=== PATIENT | female | born 1970 | race Hispanic/Latino ===

== ENCOUNTER 2019-10-08 19:07 | Emergency (ER) | payer OTHER, SELFPAY ==
[2019-10-08 19:15] VITALS: BP 170/73; PULSE 66; RESP 19; TEMP 36.6; O2SAT 100; BMI 29.8
--- NOTE | 2019-10-08 19:23 | DI.RAD.S_ITS ---
PROCEDURE: XR FOOT RT MIN 3V INDICATIONS: R lateral ankle, mid foot, lower fibula pain, s/p inverted TECHNIQUE: 3 views of the foot were acquired. COMPARISON: None. FINDINGS: Bones: No fractures or dislocations. No suspicious bony lesions. Mild first MTP joint degeneration. Soft tissues: No tibiotalar joint effusion. Achilles tendon appears normal. IMPRESSION: No fracture. If the patient's symptoms do not improve recommend followup radiographs in 10 days to assess for healing sclerosis/occult injury. Dictated by: Luis Dickens M.D. on 10/08/2019 at 20:10 Approved by: Luis Dickens M.D. on 10/08/2019 at 20:11
--- NOTE | 2019-10-08 19:23 | DI.RAD.S_ITS ---
PROCEDURE: XR ANKLE RT MIN 3V INDICATIONS: R lateral ankle, mid foot, lower fibula pain, s/p inverted TECHNIQUE: 3 views of the ankle were acquired. COMPARISON: None. FINDINGS: Bones: No fractures or dislocations. Ankle mortise is normally aligned. No suspicious bony lesions. Soft tissues: Lateral soft tissue swelling IMPRESSION: Lateral soft tissue swelling. No fracture. If the patient's symptoms do not improve recommend followup radiographs in 10 days to assess for healing sclerosis/occult injury. Dictated by: Luis Dickens M.D. on 10/08/2019 at 20:11 Approved by: Luis Dickens M.D. on 10/08/2019 at 20:13
--- NOTE | 2019-10-08 19:38 | ED_ITS ---
HPI - Extremity Injury (Lower) <WENDY Phillips - Last Filed: 10/08/19 21:03> General Chief Complaint: Extremity Injury, Lower Stated Complaint: twisted right ankle Time Seen by Provider: 10/08/19 19:10 Source: patient Mode of arrival: Ambulatory Limitations: no limitations History of Present Illness HPI Narrative: This is a 49-year-old female, nonsmoker, who presents to ED with family with chief complain of right lateral ankle and midfoot pain. Patient reports had inverted affected foot 8 days ago in [place]. She explains that the side walk in [place] is pretty high and she fell off the side walk. Patient had significant swelling for couple of days after the injury. And she had returned to home 2 days after but did not come in to ED until tonight. She has been using ibuprofen every 6-8 hours for discomfort and has been using Terrance wrap and ankle sleeve immobilizer. She noticed using ankle sleeve today was difficult due to increasing swelling and discomfort. Patient has been limping to minimize weight-bearing on injured ankle. Patient reports intact sensation but discomfort with dorsal flexion, plantar flexion and movement of affected ankle. Patient denies other injuries. Related Data Home Medications Medication Instructions Recorded Confirmed amitriptyline 50 mg tablet 50 mg PO DAILY 07/01/18 05/05/19 fluticasone propionate 50 2 spray NASAL DAILY 07/01/18 05/05/19 mcg/actuation nasal spray,suspension ibuprofen 800 mg tablet 800 mg PO BID 07/01/18 05/05/19 atenolol PO 05/05/19 05/05/19 omeprazole PO 05/05/19 05/05/19 sucralfate PO 05/05/19 05/05/19 Previous Rx's Medication Instructions Recorded benzonatate 100 mg capsule 100 mg PO TID PRN #10 cap 05/05/19 Allergies Allergy/AdvReac Type Severity Reaction Status Date / Time No Known Drug Allergies Allergy Verified 08/27/18 09:52 Review of Systems <WENDY Phillips - Last Filed: 10/08/19 21:03> Review of Systems Narrative: General: Denies fever, chills, fatigue, malaise, sweats. HEENT: Denies sinus pain, ear pain, sore throat, difficulty swallowing, dizziness. Respiratory: Denies dyspnea, cough, wheezing, hemoptysis, sputum. Cardiovascular: Denies chest pain, palpitations, orthopnea, edema. Gastrointestinal: Denies nausea, vomiting, abdominal pain, diarrhea, constipation, melena. : Denies dysuria, frequency, incontinence, hematuria, urinary retention. Musculoskeletal: See HPI Skin: Denies rash, skin lesions, or other. Neurologic: Denies weakness, headache, numbness, change in speech, confusion, seizures, incoordination. Psychiatric: No concerning psychosocial issues. 12-point review of systems is negative except for those stated above. Patient History <WENDY Phillips - Last Filed: 10/08/19 21:03> Medical History Acid reflux (Acute) High blood pressure (Acute) Surgical History History of cholecystectomy (Acute) Social History Smoking Status: Never smoker alcohol intake: never Smoking Status: Never smoker alcohol intake frequency: holidays/special occasions only Substance Use Type: former substance user Exam <WENDY Phillips - Last Filed: 10/08/19 21:03> Narrative Exam Narrative: General appearance: well developed, well nourished, in no acute distress. Head: normocephalic, atraumatic, no scalp lesions, non-tender. ENT: Bilateral auditory canals and tympanic membranes clear. Hearing grossly intact. Nose without bleeding, purulent discharge, septal hematoma or deviation. Turbinate without erythema or swelling. Facial sinuses nontender to palpate. Mucous membrane moist, no mucosal lesion. Throat without erythema, tonsillar hypertrophy or exudate. Uvula in midline, airway patent. Neck/Thyroid: neck supple, full range of motion, no visible masses or meningeal signs. No JVD, non-tender without lymphadenopathy. Skin: no suspicious rashes, lesions over visible areas. Warm and dry and appropriate color for ethnicity. Heart: no clubbing, no cyanosis, no edema. Lungs: Breathing even and unlabored. No stridor. No accessory muscles used. Able to speak in full sentences. Chest: normal shape and expansion. Abdomen: non-obese, non-distended. Neurologic: alert and oriented. 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 Psych: good eye contact, normal affect. Initial Vital Signs Initial Vital Signs: Vital Signs Temperature 97.9 F 10/08/19 19:15 Pulse Rate 66 10/08/19 19:15 Respiratory Rate 19 10/08/19 19:15 Blood Pressure 170/73 H 10/08/19 19:15 Pulse Oximetry 100 10/08/19 19:15 Extrem Right lower extremity: knee Details: normal to inspection; no tenderness, ankle Details: abnormal to inspection, tenderness Location: of the lateral malleolus and anteromedially, swelling Details: laterally, edema, abnormal ROM Details: pain with active ROM, pain with passive ROM and with range as follows (limited strength plantar and dorsal flexion) and ecchymosis (lateral malleolar); no crepitus and foot Details: normal capillary refill, tenderness Location: of the dorsal foot and of the medial foot, toes with normal ROM, vascular exam Details: dorsalis pedis pulse present and motor-sensory exam Details: light-touch abnormal <Lorna Bourne MD - Last Filed: 10/09/19 05:23> Initial Vital Signs Initial Vital Signs: Vital Signs Temperature 97.9 F 10/08/19 19:15 Pulse Rate 66 10/08/19 19:15 Respiratory Rate 19 10/08/19 19:15 Blood Pressure 170/73 H 10/08/19 19:15 Pulse Oximetry 100 10/08/19 19:15 Scores <WENDY Phillips - Last Filed: 10/08/19 21:03> GCS Rosette coma scale eye opening: Spontaneous Rosette coma scale verbal response: Orientated Rosette coma scale motor response: Obey commands [place] coma scale total score: 15 Course <WENDY Phillips - Last Filed: 10/08/19 21:03> Orders Ordered: ED Orders 10/08/19 19:23 XR ankle RT min 3V Stat XR foot RT min 3V Stat Vital Signs Vital signs: Vital Signs - 8 hr 10/08/19 19:15 Temperature 97.9 F Pulse Rate 66 Respiratory Rate 19 Blood Pressure 170/73 H Pulse Oximetry 100 <Lorna Bourne MD - Last Filed: 10/09/19 05:23> Orders Ordered: ED Orders 10/08/19 19:23 XR ankle RT min 3V Stat XR foot RT min 3V Stat Vital Signs Vital signs: Vital Signs - 8 hr 10/08/19 19:15 Temperature 97.9 F Pulse Rate 66 Respiratory Rate 19 Blood Pressure 170/73 H Pulse Oximetry 100 MDM - Extremity Injury (Lower) <WENDY Phillips - Last Filed: 10/08/19 21:03> Differential Diagnosis Differential diagnosis: Likely ankle sprain and strain, ankle fracture and other (foot sprain, foot fracture, fibula fracture) Medical Records Attestation: I reviewed the patient's medical records. Imaging Data XR-Foot RT: Radiologist's Impression: [address] [address] XRay Report Signed Patient: Anastasiia Sanchez#: [id number] : 1970Acct:[id number] Age/Sex: 49 / FDate of Service: 10/08/19 Loc: ED Accession Number: [id number] Procedure: XR foot RT min 3V Ordering Provider: Jalen Ochoa PROCEDURE: XR FOOT RT MIN 3V INDICATIONS: R lateral ankle, mid foot, lower fibula pain, s/p inverted TECHNIQUE: 3 views of the foot were acquired. COMPARISON: None. FINDINGS: Bones: No fractures or dislocations. No suspicious bony lesions. Mild first MTP joint degeneration. Soft tissues: No tibiotalar joint effusion. Achilles tendon appears normal. IMPRESSION: No fracture. If the patient's symptoms do not improve recommend followup radiographs in 10 days to assess for healing sclerosis/occult injury. Dictated by: Luis Dickens M.D. on 10/08/2019 at 20:10 Approved by: Luis Dickens M.D. on 10/08/2019 at 20:11 XR-Ankle RT: Radiologist's Impression: [address] [address] XRay Report Signed Patient: Anastasiia Sanchez#: [id number] : 1970Acct:[id number] Age/Sex: 49 / FDate of Service: 10/08/19 Loc: ED Accession Number: [id number] Procedure: XR ankle RT min 3V Ordering Provider: Jalen Ochoa PROCEDURE: XR ANKLE RT MIN 3V INDICATIONS: R lateral ankle, mid foot, lower fibula pain, s/p inverted TECHNIQUE: 3 views of the ankle were acquired. COMPARISON: None. FINDINGS: Bones: No fractures or dislocations. Ankle mortise is normally aligned. No suspicious bony lesions. Soft tissues: Lateral soft tissue swelling IMPRESSION: Lateral soft tissue swelling. No fracture. If the patient's symptoms do not improve recommend followup radiographs in 10 days to assess for healing sclerosis/occult injury. Dictated by: Luis Dickens M.D. on 10/08/2019 at 20:11 Approved by: Luis Dickens M.D. on 10/08/2019 at 20:13 [facility] [place] Narrative Medical decision making narrative: This is 49-year-old female who presents to ED with right lateral foot and ankle discomfort and swelling after she inverted about 8 days ago in [place]. No fracture or dislocation appreciated on right foot and x-ray. Patient has intact sensation and able to move her toes. There is ecchymosis and edema to right lateral malleolar and foot region. Patient's affected foot placed on walking boot splint for comfort. Patient declined crutches at this time. Advised to take Tylenol and or Motrin as needed for discomfort and elevated affected foot if there is swelling. Advised to follow up with PCP if pain persist longer than 2-4 weeks for additional evaluation and further imaging test. Patient advised to stretch it right ankle this note has acute pain subsides. Patient verbalized understanding and agrees with the treatment plan. Discharge Plan Departure Patient Disposition: Home Clinical Impression: Ankle sprain and strain Discharge Date/Time: 10/08/19 21:06 Instructions: DI for Ankle Sprain Activity Restrictions/Additional Instructions: You have been diagnosed with [right ankle and foot sprain/strain. X-ray test on your right ankle and foot does not show fracture or dislocations today. You were provided with walking boot for comfort. As soon as acute pain has improved, please start stretching your ankle. If there is swelling, you can elevate affected limb above your chest level during rest.]. What to do: *Take your medications as directed. You can take Tylenol 650-1000 mg 4 times a day as needed for discomfort. Ibuprofen/Motrin 400 mg to 600 mg 3 times a day with food for inflammation and pain. Use walking boots if you have ankle discomfort with ambulation, *Follow up with your primary care provider in 2-3 days, call for an appointment. Let them know you were seen in the ED and that we asked you to be seen in follow up. If your pain persists greater than 2-4 weeks, please have your foot and ankle re-evaluated and another imaging test. *Return to ED if you have any new, worsening, or concerning symptoms, such as [chest pain, breathing difficulty, unable to tolerate fluids, severe pain, tingling, weakness, numbness to affected foot or any acute concerns]. Prescriptions: No Action ibuprofen 800 mg tablet 800 mg PO BID RF: 0 amitriptyline 50 mg tablet 50 mg PO DAILY RF: 0 fluticasone propionate [Flonase Allergy Relief] 50 mcg/actuation spray,suspension 2 spray NASAL DAILY RF: 0 atenolol PO RF: 0 omeprazole PO RF: 0 sucralfate PO RF: 0 benzonatate [Tessalon Perles] 100 mg capsule 100 mg PO TID PRN (Reason: cough) Qty: 10 RF: 0
== END 2019-10-08 21:06 | disposition home or self-care (01) ==
PROVIDERS: Emergency Provider Nurse Practitioner Family
DX: S93.401A Sprain of unspecified ligament of right ankle, initial encounter (principal); S96.911A Strain of unspecified muscle and tendon at ankle and foot level, right foot, initial encounter; W19.XXXA Unspecified fall, initial encounter
CPT/HCPCS: 73610; 73630; 99283

== ENCOUNTER → 2021-01-17 08:57 | Outpatient (CLI) | payer OTHER, SELFPAY ==
[2021-01-17 09:45] LABS: COVID19 -Nasal RAPID Negative (Negative)
== END ==
PROVIDERS: PCP Physician Assistant; Visit Provider Specialist
DX: Z20.822 Contact with and (suspected) exposure to COVID-19 (principal)
CPT/HCPCS: 87635; C9803

== ENCOUNTER 2021-01-18 07:50 | Day surgery (SDC) | payer OTHER, SELFPAY ==
[2021-01-18] VITALS (9 sets, daily range): BP systolic 117–138; BP diastolic 62–91; PULSE 87–105; RESP 12–16; TEMP 36.1–36.7; O2SAT 91–99; BMI 35.4
--- NOTE | 2021-01-18 | PATH_ITS ---
[facility] Accession Number: [id number] . 01 Material submitted: . PART A: appendix - APPENDICEAL OPENING PART B: colon - COLON POLYP @60CM . 02 Diagnosis: A. Appendiceal Opening: Superficial portions of colorectal mucosa with patchy hyperplastic mucosal change and patchy mucosal erosion. Negative for dysplasia or malignancy. Negative for active inflamation, granulomas, and features of microscopic colitis. . B. Colon Polyp at 60 cm: Superficial portions of colorectal mucosa x2 with prominent lymphoid aggregates. [facility] 01/23/2021 1030 Local . 02 Comment: As part of routine quality assurance coach, parts of this case were also reviewed by Dr. Stroud, who agrees with the interpretation. . 02 Electronically signed: . Carmenza Alvarez MD, Pathologist NPI- [id number] . 01 Gross description: . A. The specimen is received in formalin, labeled appendiceal opening, and consists of two joya fragments of soft tissue measuring 0.4 x 0.3 x 0.2 cm in aggregate. The specimen is entirely submitted in cassette A1. B. The specimen is received in formalin, labeled colon polyp at 60 cm, and consists of two joya fragments of soft tissue measuring 0.5 x 0.4 x 0.2 cm in aggregate. The specimen is entirely submitted in cassette B1. ([id number]) /[facility] 01/19/2021 1703 Local . 02 Pathologist provided ICD-10: R85.5 . 02 CPT . 871362, 327076 Performed at: 01 [facility] [address], [place], [place] [id number] MD Saud Dutton MD Phone: [phone] Performed at: 02 [facility] [address] [place] [id number] MD Ritika Stroud MD Phone: [phone]
[2021-01-18] MEDS: FLEETS ENEMA 1 EACH PR (09:05)
[2021-01-18] MEDS: LACTATED RINGERS 1,000 ML 200 ML IV (09:06)
--- NOTE | 2021-01-18 09:17 | PM.HP.1 ---
History of Present Illness History of Present Illness Date Patient Seen: 01/18/21 Time Patient Seen: 09:17 Chief complaint: DX COLONOSCOPY/EGD Narrative: The patient is a woman here for a screening colonoscopy. She had a positive Cologuard test. She is also here for an EGD due to chronic reflux issues. Patient History Medical History Acid reflux High blood pressure Surgical History History of cholecystectomy Hx of tubal ligation Family & Social History Family History Father Hypertension Grandmother Diabetes mellitus Social History: household members spouse Tobacco & Substance use: Smoking Status Never smoker alcohol intake never alcohol intake frequency holiday/special occasion Substance Use Type does not use Meds Home Medications and Allergies Home Medications Medication Instructions Recorded Confirmed Type amitriptyline 50 mg tablet 50 mg PO DAILY 07/01/18 01/18/21 History cholecalciferol (vitamin D3) 25 25 mcg PO DAILY 11/16/20 01/18/21 History mcg (1,000 unit) capsule magnesium 200 mg tablet 200 mg PO DAILY 11/16/20 01/18/21 History atenolol 50 mg PO DAILY 01/18/21 01/18/21 History omeprazole 20 mg PO DAILY 01/18/21 01/18/21 History Allergies Allergy/AdvReac Type Severity Reaction Status Date / Time No Known Drug Allergies Allergy Verified 11/16/20 13:17 Review of Systems Review of Systems ROS: Yes All systems reviewed with the patient and are negative except as otherwise documented Exam Vital Signs (past 8 hours): - 01/18/21 08:44 Temperature 98.0 F Pulse Rate 105 H Respiratory Rate 13 Blood Pressure 138/91 H Pulse Oximetry 99 Oxygen Delivery Method Room Air Narrative Exam Narrative: Pleasant cooperative patient no apparent distress. Lungs are clear to auscultation. No rales or rhonchi. Heart regular rate and rhythm no murmur gallop. Abdomen is soft nontender without mass. No obvious hernias. Patient is alert and oriented x3. Assessment & Plan Assessment & Plan narrative: The patient for a screening colonoscopy and an EGD. I have discussed the procedures with her. Risks of bleeding, perforation which would necessitate major operation, failure to find remove all lesions, the potential tattoo were all discussed. All questions were answered. They wished to proceed.
--- NOTE | 2021-01-18 09:20 | PM.PREOP ---
Pre-operative Note COVID-19 COVID-19 status: Negative Result date/Date tested (Pos, Neg/Pending): 01/17/21 Interval Note History & Physical reviewed/Exam performed by Physician: Yes Changes to H&P: No ASA Class (for procedural sedation): II
--- NOTE | 2021-01-18 09:23 | PM.OP.ENDO ---
Operative Date/Time/Diagnoses Date of procedure: 01/18/21 Time of procedure: 10:12 Pre-op diagnosis: Chronic reflux disease. Positive Cologuard test. Screening examination. Post-op diagnosis: same (Normal upper scope. Two tiny lesions in the colon.) Procedure & Clinicians Study performed: EGD. Colonoscopy with cold biopsy. Same procedure as scheduled: Yes Indications: Positive Cologuard test. This is her 1st colonoscopy. Chronic history of reflux disease. Surgeon: Luisito Enamorado Procedure Notes SCOAP/Timeout: Performed Procedure in detail: The patient was placed in left lateral decubitus position underwent IV sedation after gargling with topical anesthetic. Sedation was directed by the surgeon consisting of fentanyl and Versed. Patient was also given metoprolol as her heart rate was in the 120s and she had not taken her beta nerissa. Scope was advanced under direct vision into the esophagus. The esophagus was unremarkable. GE junction at 35 cm from the incisors. No evidence of Graham's esophagus. Stomach insufflated well. There were no lesions seen in the body incisura antrum. The pyloric channel was widely patent. The duodenum was normal the 4th part. Scope was brought back into the stomach and retroflexed. The proximal stomach was normal in appearance. There was no evidence of a hiatal hernia. The scope was slowly withdrawn and no lesions were seen. The patient was repositioned. The patient was given additional IV sedation directed by the surgeon consisting of fentanyl and Versed. Digital exam was unremarkable except for a visible external hemorrhoid.. The scope was inserted and advanced through the rectum into the sigmoid, descending, transverse, and ascending colon. Pressure was applied the patient was repositioned in a stiffener inserted in order to reach the cecum.. The cecum was reached identified by the ileocecal valve and the appendiceal opening. The ileocecal valve was briefly cannulated. The terminal ileum was normal in appearance. There was a tiny lesion near the edge of the lip of the appendix which was biopsied and removed. The scope was gradually brought out. One either tiny Polyp was found at 60 cm from the anal verge and was biopsied and removed. The scope ultimately was retroflexed in the rectum. The appearance was normal. The scope was removed and the patient tolerated the procedure well. Prep was good. Scope withdrawal time: 9 minutes(10 total) Sedation minutes: 32 Findings: polyp (Two tiny lesions) Specimen(s): other (Polyps) Complications: none Post-procedure Recommendations: Colonscopy in 5 years (Unless the biopsies proved to be non neoplastic in which case 10 years would be more appropriate.) Follow up: as needed Disposition: PACU
[2021-01-18] MEDS: LIDOCAINE 4% SOLN 50 ML 20 ML TOP (09:26)
[2021-01-18] MEDS: MIDAZOLAM 5 MG/5 ML VIAL IV (09:28)
[2021-01-18] MEDS: METOPROLOL TARTRATE 5 MG/5 ML INJ IV (09:28)
[2021-01-18] MEDS: fentaNYL 250 MCG/5 ML INJ IV (09:29)
== END 2021-01-18 11:03 | disposition home or self-care (01) ==
PROVIDERS: PCP Physician Assistant; Referring Provider Physician Assistant; Visit Provider Specialist
PROC: 0DJ08ZZ Inspection of Upper Intestinal Tract, Via Natural or Artificial Opening Endoscopic (ICD-10-PCS; CPT 43235; principal; 2021-01-18 09:15)
PROC: 0DJD8ZZ Inspection of Lower Intestinal Tract, Via Natural or Artificial Opening Endoscopic (ICD-10-PCS; CPT 45378; 2021-01-18 09:15)
DX: R85.5 Abnormal microbiological findings in specimens from digestive organs and abdominal cavity (principal); K21.9 Gastro-esophageal reflux disease without esophagitis; I10 Essential (primary) hypertension
CPT/HCPCS: 45380; 43235; 99152; 99153; J2250; J3010

== ENCOUNTER 2023-12-02 18:23 | Emergency (ER) | payer OTHER, SELFPAY ==
[2023-12-02 18:29] VITALS: BP 138/83; PULSE 77; RESP 18; TEMP 36.2; O2SAT 99; BMI 34.4
--- NOTE | 2023-12-02 18:36 | DI.RAD.S_ITS ---
PROCEDURE: XR CHEST 1V INDICATIONS: chest pain TECHNIQUE: One view of the chest was acquired. COMPARISON: None. FINDINGS: Surgical changes and devices: None. Lungs and pleura: Lungs are clear. No pleural effusions or pneumothorax. Mediastinum: Mediastinal contours appear normal. Heart size is normal. Bones and chest wall: No suspicious bony lesions. Overlying soft tissues appear unremarkable. IMPRESSION: No acute cardiopulmonary pathology. Dictated by: Lee Wheatley M.D. on 12/02/2023 at 19:06 Approved by: Lee Wheatley M.D. on 12/02/2023 at 19:06
[2023-12-02 19:03] VITALS: BP 140/83; PULSE 84; RESP 14; O2SAT 97
[2023-12-02 19:30] VITALS: BP 133/72; PULSE 80; RESP 17; O2SAT 96
[2023-12-02 19:30] LABS: Add Manual Diff / Slide Review NO; Basophils Absolute Auto 100 /uL (0-100); Basophils Percent Auto 0.7 % (0-2); Eosinophils Absolute Auto 200 /uL (0-450); Eosinophils Percent Auto 2.5 % (2-4); Hematocrit 43.5 % (36-46); Hemoglobin 14.7 g/dL (12.0-16.0); Lymphocytes Absolute Auto 3200 /uL (1100-4500); Lymphocytes Percent Auto 37.4 % (25-40); Mean Corpuscular HGB Conc 33.7 % (30-36); Mean Corpuscular Hemoglobin 29.6 PG (26-34); Mean Corpuscular Volume 87.7 fL (80-100); Monocytes Absolute Auto 700 /uL (0-900); Monocytes Percent Auto 7.7 % (3-14); Neutrophils Absolute Auto 4400 /uL (1500-7000); Neutrophils Percent Auto 51.7 % (50-75); Platelet Count 202 X10^3/uL (150-400); Red Blood Cell Count 4.96 X10^6/uL (4.0-5.2); Red Cell Distribution Width 13.8 % (11.6-14.8); White Blood Cell Count 8.6 X10^3/uL (4.5-11.0)
[2023-12-02 20:00] VITALS: BP 131/72; PULSE 76; RESP 17; O2SAT 95
[2023-12-02 20:01] LABS: Alanine Aminotransferase 93 IU/L (<35); Albumin 4.1 g/dL (3.5-5.0); Albumin Globulin Ratio 1.2 (1.0-2.8); Alkaline Phosphatase 119 U/L (38-126); Aspartate Aminotransferase 75 IU/L (14-36); BUN Creatinine Ratio 17.9 (6-22); Bilirubin Total 0.4 mg/dL (0.2-1.3); Blood Urea Nitrogen 15 mg/dL (7-17); Calcium 9.2 mg/dL (8.4-10.2); Carbon Dioxide 30 mmol/L (22-32); Chloride 102 mmol/L (98-107); Creatine Kinase 94 U/L (30-135); Estimated Glomerular Filt Rate > 60 mL/min (>60); Globulin 3.3 g/dL (1.7-4.1); Glucose 182 mg/dL (70-100); HEMOLYSIS 20 (0-50); Lipase 95 U/L (23-300); Magnesium 1.9 mg/dL (1.6-2.3); Potassium 3.7 mmol/L (3.4-5.1); Sodium 137 mmol/L (137-145); Total Protein 7.4 g/dL (6.3-8.2)
[2023-12-02 20:12] LABS: Troponin I < 0.012 ng/mL (0.01-0.034)
--- NOTE | 2023-12-02 20:28 | ED.GENADULT ---
HPI - General Adult General Chief complaint: Dizziness Stated complaint: dizziness, tingling hands, vomiting Time Seen by Provider: 12/02/23 18:36 Source: patient Mode of arrival: Ambulatory History of Present Illness HPI narrative: Patient is a 53-year-old female. She states that today she was sitting and she had a very sudden onset of feeling like the room was spinning. It lasted only a few minutes and then completely resolved. During the time she became very nauseous and vomiting. She would tingling in her hands. She did not have any chest pain, palpitations, potentially did have a slight headache during the time but that has resolved. No balance issues. No ringing in her ears. She stated that she had something very similar happened a couple weeks ago. She felt like this 1 was more intense and lasted little bit longer than prior. At the time of my evaluation she was asymptomatic. Related Data Home Medications Medication Instructions Recorded Confirmed amitriptyline 50 mg tablet 50 mg PO DAILY 07/01/18 04/19/21 cholecalciferol (vitamin D3) 25 25 mcg PO DAILY 11/16/20 04/19/21 mcg (1,000 unit) capsule magnesium 200 mg tablet 200 mg PO DAILY 11/16/20 04/19/21 atenolol 50 mg tablet 50 mg PO DAILY 01/18/21 04/19/21 omeprazole 20 mg tablet,delayed 20 mg PO DAILY 01/18/21 04/19/21 release Previous Rx's Medication Instructions Recorded triamcinolone acetonide 0.1 % 1 applic topical BID rash/itching 04/19/21 topical ointment #30 grams meclizine 25 mg tablet 25 mg PO BID PRN dizziness #20 tabs 12/02/23 Allergies Allergy/AdvReac Type Severity Reaction Status Date / Time No Known Drug Allergies Allergy Verified 04/19/21 12:50 Review of Systems Review of Systems Narrative: See HPI Patient History Medical History Acid reflux High blood pressure Surgical History History of cholecystectomy Hx of tubal ligation Family History Father Hypertension Grandmother Diabetes mellitus Social History marital status: household members: spouse occupational status: employed Smoking Status: Never smoker alcohol intake: never substance use type: does not use Smoking Status: Never smoker alcohol intake frequency: holidays/special occasions only Substance Use Type: marijuana Exam Initial Vital Signs Initial Vital Signs: Vital Signs Temperature 97.2 F L 12/02/23 18:29 Pulse Rate 77 12/02/23 18:29 Respiratory Rate 18 12/02/23 18:29 Blood Pressure 138/83 12/02/23 18:29 Pulse Oximetry 99 12/02/23 18:29 Oxygen Delivery Method Room Air 12/02/23 18:29 Const General: cooperative, comfortable and No ill appearing HENMT Head: normal to inspection and normocephalic Resp Effort & Inspection: normal respiratory effort Auscultation: clear to auscultation bilaterally Cardio Rate: regular rate Rhythm: regular rhythm GI Inspection: normal to inspection Skin General: no rashes or lesions noted Neuro General: patient alert, patient awake, patient oriented x3 and moves all extremities Speech: speech normal Gait: normal gait Extrem General: normal to inspection and capillary refill normal Course Orders Ordered: ED Orders 12/02/23 18:36 XR chest 1V Stat EKG-12 Lead Stat 12/02/23 19:18 Complete Blood Count AUTO DIFF Stat Comprehensive Metabolic Panel Stat Lipase Stat Magnesium Stat Troponin & CK Cardiac Panel Stat Discontinued Medications Aspirin (Aspirin 81 Mg Chew Tab) 324 mg PO NOW ONE Stop: 12/02/23 18:36 Last Admin: 12/02/23 18:49 Dose: Not Given Documented By: ARAMIS Vital Signs Vital signs: Vital Signs - 8 hr 12/02/23 18:29 12/02/23 19:03 12/02/23 19:03 Temperature 97.2 F L Pulse Rate 77 84 Respiratory Rate 18 14 Blood Pressure 138/83 140/83 Pulse Oximetry 99 97 Oxygen Delivery Method Room Air Room Air 12/02/23 19:30 12/02/23 19:30 12/02/23 20:00 Temperature Pulse Rate 80 76 Respiratory Rate 17 17 Blood Pressure 133/72 Pulse Oximetry 96 95 Oxygen Delivery Method Room Air 12/02/23 20:00 12/02/23 20:30 12/02/23 20:30 Temperature Pulse Rate 77 Respiratory Rate 14 Blood Pressure 131/72 133/61 Pulse Oximetry 97 Oxygen Delivery Method Medical Decision Making Lab Data Lab results reviewed: Yes I reviewed the patient's lab results. 12/02/23 19:18 12/02/23 19:18 Labs: Lab Results 12/02/23 Range/Units 19:18 WBC 8.6 (4.5-11.0) X10^3/uL RBC 4.96 (4.0-5.2) X10^6/uL Hgb 14.7 (12.0-16.0) g/dL Hct 43.5 (36-46) % MCV 87.7 (80-100) fL MCH 29.6 (26-34) PG MCHC 33.7 (30-36) % RDW 13.8 (11.6-14.8) % Plt Count 202 (150-400) X10^3/uL Neut % (Auto) 51.7 (50-75) % Lymph % (Auto) 37.4 (25-40) % Appling % (Auto) 7.7 (3-14) % Eos % (Auto) 2.5 (2-4) % Baso % (Auto) 0.7 (0-2) % Neut # (Auto) 4400 (5596-1325) /uL Lymph # (Auto) 3200 (0771-3591) /uL Appling # (Auto) 700 (0-900) /uL Eos # (Auto) 200 (0-450) /uL Baso # (Auto) 100 (0-100) /uL PT Cancelled INR Cancelled APTT Cancelled Sodium 137 (137-145) mmol/L Potassium 3.7 (3.4-5.1) mmol/L Chloride 102 (98-107) mmol/L Carbon Dioxide 30 (22-32) mmol/L BUN 15 (7-17) mg/dL Creatinine 0.84 (0.52-1.04) mg/dL Estimated GFR > 60 (>60) mL/min BUN/Creatinine Ratio 17.9 (6-22) Glucose 182 H (70-100) mg/dL Calcium 9.2 (8.4-10.2) mg/dL Magnesium 1.9 (1.6-2.3) mg/dL Total Bilirubin 0.4 (0.2-1.3) mg/dL AST 75 H (14-36) IU/L ALT 93 H (<35) IU/L Alkaline Phosphatase 119 (38-126) U/L Total Creatine Kinase 94 (30-135) U/L Troponin I < 0.012 (0.01-0.034) ng/mL Total Protein 7.4 (6.3-8.2) g/dL Albumin 4.1 (3.5-5.0) g/dL Globulin 3.3 (1.7-4.1) g/dL Albumin/Globulin Ratio 1.2 (1.0-2.8) Lipase 95 (23-300) U/L Imaging Data Chest x-ray: Radiologist's Impression: PROCEDURE: XR CHEST 1V INDICATIONS: chest pain TECHNIQUE: One view of the chest was acquired. COMPARISON: None. FINDINGS: Surgical changes and devices: None. Lungs and pleura: Lungs are clear. No pleural effusions or pneumothorax. Mediastinum: Mediastinal contours appear normal. Heart size is normal. Bones and chest wall: No suspicious bony lesions. Overlying soft tissues appear unremarkable. IMPRESSION: No acute cardiopulmonary pathology. ECG Data Attestation: I personally reviewed and interpreted this ECG as follows: Interpretation: Sinus rhythm Ventricular rate is 78 Normal axis LVH No ST T wave changes MDM Narrative Medical decision making narrative: Patient is now completely asymptomatic. It appears that now she has had 2 separate episodes of what appeared to be vertigo. It does not sound like she has any other associated symptoms during the time to include palpitations. I do feel that we can hold on a head CT for now. Low suspicion for CVA. Low suspicion for TIA. EKG is unremarkable. We did discuss the possibility of a transient arrhythmia. Given the fact that she is now completely asymptomatic will discharge patient home with return precautions and instructions to contact her primary care provider for follow-up. She expressed understanding and agreement with plan. Discharge Plan Departure Patient Disposition: Home Clinical Impression: Vertigo Instructions: DI for Vertigo Activity Restrictions/Additional Instructions: The do recommend that you continue to take all of your medications as directed. Contact your primary care doctor for a follow-up. You may also benefit from a referral to see ear nose and throat. Return to the emergency department for new or worsening symptoms like we discussed. Prescriptions: New meclizine 25 mg tablet 25 mg PO BID PRN (Reason: dizziness) Qty: 20 0RF No Action triamcinolone acetonide 0.1 % ointment 1 applic topical BID Qty: 30 0RF amitriptyline 50 mg tablet 50 mg PO DAILY cholecalciferol (vitamin D3) 25 mcg (1,000 unit) capsule 25 mcg PO DAILY magnesium 200 mg tablet 200 mg PO DAILY omeprazole 20 mg Tablet,Delayed Release (Dr/Ec) 20 mg PO DAILY atenolol 50 mg Tablet 50 mg PO DAILY Referrals: Jayden Guardado MD [Physician] - Lisa Au PA-C [Primary Care Provider] - Stand Alone Forms: Patient Portal/API
[2023-12-02 20:30] VITALS: BP 133/61; PULSE 77; RESP 14; O2SAT 97
== END 2023-12-02 20:58 | disposition home or self-care (01) ==
PROVIDERS: Emergency Provider Emergency Medicine; PCP Physician Assistant
DX: R42 Dizziness and giddiness (principal)
CPT/HCPCS: 36415; 71045; 80053; 82550; 83690; 83735; 84484; 85025; 93005; 99284

== ENCOUNTER → 2024-02-18 15:20 | Outpatient (CLI) | payer OTHER, SELFPAY ==
--- NOTE | 2024-02-18 15:36 | DIAB.MNT ---
Initial Diabetes Medical Nutrition Therapy Assessment Name: Tere Lomeli Date: 02/18/24 Time: 330- Dx: Type II Diabetes Provider: Lisa Au Preferred Learning Style: Listening/Watching/Reading/Doing Tere presents for initial visit. FH of DM with grandmothers on both sides and some uncles and aunts. Reports elevated BG last year. Started Trulicity at that time, but states she did not add any other lifestyle changes. Cut back on buying coffee. Started going to the gym. Stopped eating cakes or chips. Really making an effort to make lifestyle change. Taking Trulicity at 3mg per week. Has wt loss goal, eat healthier to reduce or eliminate some medications or experience complications. Stress with working in HR. Trying to move q two hours. Uses stand up desk. Early satiety with GLP1. Eating more veggies lately. Reports she was previously going long periods without eating and then over consuming. Reports she was unaware that she had DM. Thought this diagnosis was prediabetes. Per provider notes, HgA1c of 7% in August. Diet Recall: 7a: eggs, toast, fruit and coffee with flavored creamer 930a: half apple or 1c oats with brown sugar 12p: veg and chicken OR beef with 1c rice and veggies and sf jello 3p: half c fruit or veg 630p: meat, 1c rice, 1/2c beans, veggies 830p: small piece of granola bar OR half toast with jam water 3 x 16.9oz with sf flavors, 20oz coffee with creamer, pineapple juice x 8oz at dinner, occasionally sprite Anthropometrics: Ht: 65 Wt: 202# reported Physical Activity: Aims for 30 min walks pe rdya and gym 2x per week Self-Monitoring Blood Glucose: None. States provider offered supplies, but not currently testing. Diabetes Medications: 3mg Trulicity per week Pertinent Labs: Per provider referral/notes: 08/2023 7% hgA1c Past Medical History: (Last Reviewed 12/03/23 @ 01:46 by Marc Dang DO) Acid reflux High blood pressure Nutrition Rx: Carbohydrates: Meal:30-45g Snack:15-30g Nutrition Diagnosis: - Food and nutrition related knowledge deficit r/t new dx DM aeb diet recall and hgA1c of 7% - Self monitoring deficit r/t knowledge deficit about new dx aeb pt report of no current SMBG Intervention: This participant was very receptive. Provided appropriate educational handouts. Discussed the following topics: Completed intake assessment. Discussed barriers to care. HgA1c, its correlation to blood glucose numbers, and rationale for goal Importance of self-monitoring, how often, and when to check. Suggested checking at different times to evaluate meals Plate Method, impact of macronutrients on blood sugar, meal timing, carbohydrate counting, pairing macronutrients and spreading out carbohydrates for better blood glucose management Recommended servings for carbohydrates at meals and snacks Heart health nutrition Label reading Eating out strategies Brainstormed appropriate meal plan based on food preferences Role of physical activity Created SMART goals for patient self-care and success. Goals: Add pro to HS snack Watch CHO portions at dinner Avoid sugar beverages Start checking BG Follow-up: RON ARROYO follow-up in 3-4 weeks Aby Singh RDN, [facility] Certified Diabetes Care and Splicing Supervisor P: [phone] Thank you for this referral
== END ==
PROVIDERS: PCP Physician Assistant; Referring Provider Physician Assistant
DX: E11.9 Type 2 diabetes mellitus without complications (principal); Z79.85 Long-term (current) use of injectable non-insulin antidiabetic drugs; Z71.3 Dietary counseling and surveillance
CPT/HCPCS: 97802